=== PATIENT | male | born 1945 | race Caucasian/White ===

== ENCOUNTER 2024-07-27 13:19 | Emergency (ER) | payer MEDICARE ==
[~2024-07-27] VITALS: Ht 172.7 cm; Wt 77.6 kg
[2024-07-27] MEDS ORDERED: METF-877 PO (13:36)
[2024-07-27] MEDS ORDERED: GLIP10TA PO (13:36)
[2024-07-27] MEDS ORDERED: ROSU40TA81 PO (13:36)
[2024-07-27] MEDS ORDERED: METO1TAB32 PO (13:36)
[2024-07-27] MEDS ORDERED: LANTINJ4 SC (13:36)
[2024-07-27] MEDS ORDERED: GLYX1TAB PO (13:36)
[2024-07-27] MEDS ORDERED: MAGN400T2 PO (13:36)
[2024-07-27] MEDS ORDERED: ASPI81CH33 PO (13:36)
[2024-07-27] MEDS ORDERED: LOSA25TA13 PO (13:36)
[2024-07-27] MEDS ORDERED: LEVO137C PO (13:36)
[2024-07-27 13:51] VITALS: TEMP 97.6
[2024-07-27 15:15] VITALS: BP 170/77; O2SAT 98
== END 2024-07-27 15:48 | disposition home or self-care (01) ==
LOC: M ED 13:19
DX: I10 Essential (primary) hypertension (principal); E11.9 Type 2 diabetes mellitus without complications; K21.9 Gastro-esophageal reflux disease without esophagitis; E03.9 Hypothyroidism, unspecified; D50.9 Iron deficiency anemia, unspecified; Z90.89 Acquired absence of other organs; Z95.5 Presence of coronary angioplasty implant and graft; Z79.899 Other long term (current) drug therapy